=== PATIENT | male | born 1945 | race Two or more races ===

== ENCOUNTER 2020-12-18 09:00 | Outpatient (CLI) | payer OTHER | END 2020-12-18 16:58 | disposition home or self-care (01) | LOC: PPH VACUNA 09:00 | PROVIDERS: ATTEND Emergency Medicine Pediatric Emergency Medicine | DX: Z23 Encounter for immunization (principal) ==

== ENCOUNTER 2021-07-02 09:50 | Outpatient (CLI) | payer OTHER | END 2021-07-02 10:00 | disposition home or self-care (01) | LOC: PPH VACUNA 09:50 | PROVIDERS: ATTEND Emergency Medicine Pediatric Emergency Medicine | DX: Z23 Encounter for immunization (principal) ==